=== PATIENT | female | born 1980 | race Caucasian/White ===

== ENCOUNTER 2018-08-23 11:15 | Outpatient (CLI) | payer BC ==
--- NOTE | 2018-08-23 13:04 | ULT ---
OB ULTRASOUND: HISTORY: anatomy. FINDINGS: A single live intrauterine gestation is seen with measurements corresponding to an estimated gestatio nal age of 21 weeks 1 day and an BUZZ of 01/02/2019. The estimated weight measures 414 g or 15 oz. This corresponds to the 77th percentile by Hadlock criteria. measurements are as follows: BPD: 4.93 cm (20 weeks 6 days). HC: 18.67 cm (21 weeks 0 days). AC: 16.55 cm (21 weeks 4 days). FL: 3.51 cm (21 weeks 1 day). The heart rate measures 141 beats per minute. The MARIA DEL CARMEN measures 10.8 cm. The placenta is anter iorly located without evidence of placenta previa. A three-vessel cord, cord insertion, kidneys, bladder, four-chambered heart, lateral ventricles , cerebellum, spine, lips, nose, and upper and lower extremities are visualized. No significant feta l anomalies are seen. IMPRESSION: Single live intrauterine of 21 weeks 1 day estimated gestational age and estimated date of delivery of 01/02/2019. POS: [facility]
== END 2018-08-23 11:16 | disposition home or self-care (01) ==
LOC: SCSULT 11:15
PROVIDERS: ATTEND Midwife
DX: Z36.89 Encounter for other specified antenatal screening (principal); Z3A.21 21 weeks gestation of pregnancy
CPT/HCPCS: 76805